=== PATIENT | female | born 1930 ===

== ENCOUNTER 2017-02-28 21:06 | Inpatient (IN) | payer MEDICARE, OTHER ==
[2017-02-28 21:24] VITALS: BMI 18.7
--- NOTE | 2017-02-28 21:25 | ED PDOC ---
Arrival/HPI - General Time Seen by Provider: 02/28/17 21:17 Historian: Family, EMS - History of Present Illness Narrative History of Present Illness (Text): 02/28/17 21:19 Yudi Perez is a 86 year old female, with a history of Alzheimer's, osteoporosis , hypothyroidism and diabetes, presents to the emergency department via EMS for altered mental status. Per daughter and EMS, patient suddenly passed out while sitting at the table to eat dinner about 30 minutes prior to arrival. Patient fell over onto the plate and remained unresponsive to verbal stimuli. According to daughter, she was at her baseline prior to this episode. However, she reports that patient was unable to fall asleep since yesterday. Patient responsive to painful stimuli in the emergency department. ROS limited due to AMS. Time/Duration: 1/2 hour Symptom Onset: Sudden Symptom Course: Unchanged Severity Level: Moderate Activities at Onset: Eating Context: Home Past Medical History - Provider Review Nursing Documentation Reviewed: Yes Family/Social History - Physician Review Nursing Documentation Reviewed: Yes Family/Social History: No Known Family HX Allergies/Home Meds Allergies/Adverse Reactions: Allergies No Known Allergies Allergy (Verified 02/28/17 21:19) Home Medications: Home Meds Medication Instructions Recorded Confirmed Alendronate [Fosamax] 10 mg PO DAILY 02/28/17 02/28/17 Carvedilol [Coreg] 12.5 mg PO BID 02/28/17 02/28/17 Donepezil [Aricept] 5 mg PO HS 02/28/17 02/28/17 Levothyroxine [Synthroid] 88 mcg PO DAILY 02/28/17 02/28/17 Linagliptin [Tradjenta] 5 mg PO DAILY 02/28/17 02/28/17 Omeprazole [Omeprazole] 40 mg PO HS 02/28/17 02/28/17 Tramadol HCl [Ultram] 50 mg PO PRN PRN 02/28/17 02/28/17 Valsartan [Diovan] 40 mg PO DAILY 02/28/17 02/28/17 Review of Systems - Review of Systems Systems not reviewed;Unavailable: Altered Mental Status Physical Exam Vital Signs Reviewed: Yes Vital Signs Temp Pulse Resp BP Pulse Ox 03/01/17 02:45 66 18 109/55 L 96 03/01/17 01:00 69 19 101/60 95 03/01/17 00:00 67 21 107/57 L 95 02/28/17 23:25 74 26 H 111/69 95 02/28/17 22:25 73 18 106/52 L 95 02/28/17 22:00 98.5 F 67 18 98 02/28/17 21:18 71 15 118/61 94 L Temperature: Afebrile Blood Pressure: Normal Pulse: Regular Respiratory Rate: Normal Appearance: Positive for: Non-Toxic Mental Status: Positive for: other (unresponsive ) - Systems Exam Head: Present: Atraumatic, Normocephalic Pupils: Present: PERRL Conjunctiva: Present: Normal Respiratory/Chest: Present: Clear to Auscultation, Good Air Exchange. No: Respiratory Distress, Accessory Muscle Use Cardiovascular: Present: Regular Rate and Rhythm, Normal S1, S2. No: Murmurs Skin: Present: Warm, Dry, Normal Color. No: Rashes Medical Decision Making ED Course and Treatment: 02/28/17 21:28 Impression: A 86 year old female who presents to the emergency department for evaluation of altered mental status. Patient experienced a syncopal episode while eating dinner and remained unresponsive to verbal communication. Plan: -- Labs -- EKG -- CT head -- TSH -- Chest X-ray -- Reassess and disposition Progress Notes: 02/28/17 21:42 CT Head results reviewed by me: FINDINGS: Brain: Simh-at-eyrptejr atrophy. No intracranial hemorrhage. No mass. Several scattered foci of decreased attenuation within periventricular/subcortical white matter. No definite edema. Ventricles: No hydrocephalus. Bones/joints: No acute fracture. Soft tissues: Unremarkable. Vasculature: Atherosclerotic disease of intracranial arteries. Sinuses: No acute sinusitis. Mastoid air cells: No mastoid effusion. Orbits: Unremarkable as visualized. IMPRESSION: 1. Nonspecific white matter changes. Acute infarction may be CT occult within first 24 hours. If a focal deficit persists, consider followup CT or MRI for further evaluation. 2. Incidental/non-acute findings are described above. 02/28/17 21:51 Patient is currently alert and sitting up in bed without any distress. 02/28/17 22:16 EKG interpreted by me: NSR @ 73 bpm. Normal [place]. Normal interval. No acute ischemia. 02/28/17 22:34 Chest X-ray interpreted by me: Bilateral fibrotic changes. no acute processes. 02/28/17 23:40 Case discussed with medical service consignee, Dr. Payne, who agrees with the plan to admit patient to med/surge for AMS- requests a ddimer. 0== - Lab Interpretations Microbiology Results: Microbiology Results 02/28/17 23:35 Urine Urine Culture - Final 10-50,000 CFU/ML. MULTIPLE SPECIES. PROBABLE CONTAMINATION. 03/01/17 06:30 Urine,Clean Catch Urine Culture - Final 10-50,000 CFU/ML. MULTIPLE SPECIES. PROBABLE CONTAMINATION. Lab Results: 03/01/17 08:20 03/01/17 08:20 Lab Results 03/01/17 16:57: POC Glucose (mg/dL) 39 L 03/01/17 10:55: POC Glucose (mg/dL) 368 H 03/01/17 08:20: WBC 9.3, RBC 3.82, Hgb 11.2 L, Hct 33.3 L, MCV 87.2, MCH 29.3, MCHC 33.6, RDW 12.7, Plt Count 271, MPV 10.8, Gran % 66.2, Lymph % (Auto) 24.1, [place] % (Auto) 8.0 H, Eos % (Auto) 1.5, Baso % (Auto) 0.2, Gran # 6.16, Lymph # 2.3, [place] # 0.8 H, Eos # 0.1, Baso # 0.02, Sodium 135, Potassium 4.2, Chloride 99, Carbon Dioxide 29, Anion Gap 11, BUN 19, Creatinine 0.5, Est GFR ( Amer) > 60, Est GFR (Non-Af Amer) > 60, Random Glucose 200 H, Calcium 9.0, Total Bilirubin 1.2, AST 30, ALT 60 H, Alkaline Phosphatase 126, Lactate Dehydrogenase 341, Total Creatine Kinase 22 L, Troponin I 0.04 D, Total Protein 6.6, Albumin 3.1, Globulin 3.5, Albumin/Globulin Ratio 0.9 L, TSH 3rd Generation 3.76 03/01/17 07:36: POC Glucose (mg/dL) 227 H 02/28/17 23:35: Urine Color Yellow, Urine Appearance Cloudy, Urine pH 6.0, Ur Specific [place] >= 1.030, Urine Protein 30 H, Urine Glucose (UA) >=1000, Urine Ketones Trace H, Urine Blood Moderate H, Urine Nitrate Negative, Urine Bilirubin Negative, Urine Urobilinogen 1.0 H, Ur Leukocyte Esterase Negative, Urine RBC 2 - 5, Urine WBC 5 - 10, Ur Epithelial Cells 3 - 4, Urine Bacteria Mod 02/28/17 23:32: Blood Type Confirm A POSITIVE 02/28/17 21:50: WBC 11.4 H, RBC 4.42, Hgb 12.9, Hct 38.6, MCV 87.3, MCH 29.2, MCHC 33.4, RDW 12.5, Plt Count 295, MPV 10.9, Gran % 76.4 H, Lymph % (Auto) 16.9 L, [place] % (Auto) 5.9, Eos % (Auto) 0.7 L, Baso % (Auto) 0.1, Gran # 8.71 H , Lymph # 1.9, [place] # 0.7 H, Eos # 0.1, Baso # 0.01, PT 10.8, INR 1.00, APTT 26.4, D-Dimer, Quantitative 1.25 H, Sodium 135, Potassium 4.6, Chloride 97 L, Carbon Dioxide 30, Anion Gap 13, BUN 23 H, Creatinine 0.6, Est GFR ( Amer ) > 60, Est GFR (Non-Af Amer) > 60, Random Glucose 243 H, Hemoglobin A1c 9.3 H, Calcium 9.9, Total Bilirubin 1.5 H, AST 36, ALT 64 H, Alkaline Phosphatase 149 H , Troponin I 0.03, Total Protein 8.3, Albumin 3.9, Globulin 4.4, Albumin/ Globulin Ratio 0.9 L, Triglycerides 131, Cholesterol 166, LDL Cholesterol Direct 90, HDL Cholesterol 50, TSH 3rd Generation 1.77, Blood Type A POSITIVE, Antibody Screen Negative, BBK History Checked No verified bt 02/28/17 21:17: POC Glucose (mg/dL) 318 H I have reviewed the lab results: Yes - RAD Interpretation Radiology Orders: 02/28/17 21:22 HEAD W/O (CODE STROKE) [CT] Stat 02/28/17 21:23 CHEST PORTABLE [RAD] Stat 03/01/17 01:25 ANGIO CHEST PE PROTOCOL [CT] Stat 03/01/17 07:57 CAROTID & VERTEBRAL DUPLEX [US] Routine Generation Engineer: Radiologist - EKG Interpretation Interpreted by ED Physician: Yes Type: 12 lead EKG - Medication Orders Current Medication Orders: Donepezil HCl (Aricept) 5 mg PO HS [facility] Last Admin: 03/02/17 21:04 Dose: 5 MG Enoxaparin Sodium (Lovenox) 40 mg SC DAILY [facility] PRN Reason: Protocol Last Admin: 03/03/17 10:28 Dose: 40 MG Protocol for PTT Monitoring Document 03/03/17 10:28 MV (Rec: 03/03/17 10:29 MV [id number]) Protocol Protocol for PTT Monitoring Following clinical pathway protocol (regime/therapy) Subcutaneous Administrations Document 03/03/17 10:28 MV (Rec: 03/03/17 10:29 MV [id number]) Injection Site MAR Injection Site Right Abdomen Charges for Administration # of Subcutaneous Administrations 1 Glimepiride (Amaryl) 4 mg PO ACBD [facility] Last Admin: 03/03/17 17:55 Dose: Home Med (Home Med) 1 unit PO DAILY [facility] Last Admin: 03/03/17 10:28 Dose: Home Med (Home Med) 1 unit PO DAILY [facility] Last Admin: 03/03/17 10:28 Dose: Insulin Human Regular (Humulin R Low) 0 units SC ACHS [facility] PRN Reason: Protocol Last Admin: 03/03/17 17:55 Dose: MAR Blood Glucose Document 03/03/17 17:55 MV (Rec: 03/03/17 17:55 MV [id number]) Blood Glucose Finger Stick Blood Glucose (70-120) 108 Levothyroxine Sodium (Synthroid) 88 mcg PO ACB [facility] Last Admin: 03/03/17 10:29 Dose: 88 MCG Pantoprazole Sodium (Protonix Ec Tab) 40 mg PO HS [facility] Last Admin: 03/02/17 21:05 Dose: 40 MG Sitagliptin Phosphate (Januvia) 50 mg PO DAILY [facility] Last Admin: 03/03/17 10:28 Dose: 50 MG Tramadol HCl (Ultram) 50 mg PO Q12H [facility] Last Admin: 03/03/17 10:29 Dose: 50 MG MAR Pain Assessment Document 03/03/17 10:29 MV (Rec: 03/03/17 10:29 MV [id number]) Pain Reassessment Is this a pain reassessment? No Discontinued Medications Alendronate Sodium (Fosamax) 10 mg PO DAILY [facility] Dextrose (Dextrose 50% Inj) Confirm Administered Dose 50 ml .ROUTE .STK-MED ONE Stop: 03/01/17 17:00 Last Admin: 03/01/17 17:10 Dose: 50 ML Glipizide (Glucotrol) 5 mg PO DAILY [facility] Last Admin: 03/01/17 14:55 Dose: 5 MG Ceftriaxone Sodium (Rocephin 1 Gram Ivpb) 100 mls @ 200 mls/hr IVPB STAT STA PRN Reason: Protocol Stop: 03/01/17 00:40 Last Admin: 03/01/17 01:25 Dose: 200 MLS/HR eMAR Start Stop Document 03/01/17 01:25 SB (Rec: 03/01/17 01:26 SB [id number] Intravenous Solution Start Date 03/01/17 Start Time 01:26 End Date 03/01/17 Sodium Chloride (Sodium Chloride 0.9%) 1,000 mls @ 60 mls/hr IV .[id number] [facility] Stop: 03/02/17 09:00 Last Admin: 03/02/17 04:44 Dose: Insulin Detemir (Levemir) 12 unit SC [facility] Last Admin: 03/02/17 21:05 Dose: 12 UNIT Subcutaneous Administrations Document 03/02/17 21:05 RR (Rec: 03/02/17 21:05 RR [id number]) Charges for Administration # of Subcutaneous Administrations 1 Insulin Human Lispro (Humalog) 10 units SC ONCE ONE Stop: 03/02/17 11:50 Last Admin: 03/02/17 12:09 Dose: 10 UNITS Subcutaneous Administrations Document 03/02/17 12:09 CLR (Rec: 03/02/17 12:09 CLR [id number]) Injection Site MAR Injection Site Right Arm Charges for Administration # of Subcutaneous Administrations 9 Insulin Human Regular (Humulin R Low) 0 units SC ACHS [facility] PRN Reason: Protocol Last Admin: 03/01/17 17:11 Dose: Not Given Non-Admin Reason: Blood Sugar Parameter Iodixanol (Visipaque 320 Mg/Ml 100 Ml) Confirm Administered Dose 100 ml IV .STK- MED ONE Stop: 03/01/17 01:32 NIHSS Scale ([place]) Time Performed: 21:18 rTPA Inclusion/Exclusion - Refusal of Treatment Patient Refused Treatment: No - Inclusion Criteria for Altepase Patient is 18 years or Older: Yes The Clinical Diagnosis of Ischemic Stroke That is Causing a Potentially Disabling Neurological Deficit: No Time of Onset is Well Established to be Less Than 270 Minute Before Treatment Would Begin: Yes Risk/Benefit Discussed With Patient/Family Member Present: Yes NIHSS Stroke Scale 3 - Date/Time Evaluation Performed Time Performed: 21:18 - How Severe is the Stroke Level of Consciousness: 3=Unresponsive LOC to Questions: 2=Neither correct LOC to commands: 2=Neither correct Best Gaze: 0=Normal Visual: 0=No visual loss Facial: 0=Normal Motor Arm - Left: 3=No effort against gravity (falls immediately) Motor Arm - Right: 3=No effort against gravity (falls immediately) Motor Leg - Left: 3=No effort against gravity (falls immediately) Motor Leg - Right: 3=No effort against gravity (falls immediately) Limb Ataxia: 0=Absent Sensory: 0=Normal Best Language: 3=Mute Dysarthia: 0=Normal articulation Extinction & Inattention (Neglect): 0=Normal, no object Score: 22 - Scribe Statement The provider has reviewed the documentation as recorded by the Thomas Napoles Provider Attestation: Provider Scribe Attestation: All medical record entries made by the Elieribaura were at my direction and personally dictated by me. I have reviewed the chart and agree that the record accurately reflects my personal performance of the history, physical exam, medical decision making, and the department course for this patient. I have also personally directed, reviewed, and agree with the discharge instructions and disposition. Disposition/Present on Arrival - Present on Arrival Any Indicators Present on Arrival: No - Disposition Have Diagnosis and Disposition been Completed?: Yes Diagnosis: Altered mental status Disposition: HOSPITALIZED Disposition Time: 23:28 Condition: STABLE
--- NOTE | 2017-02-28 21:39 | CT ---
EXAM: CT Head Without Intravenous Contrast CLINICAL HISTORY: 86 years old, female; Signs and symptoms; Alteration of consciousness; Patient HX: AMS, code stroke TECHNIQUE: Axial computed tomography images of the head/brain without intravenous contrast. This CT exam was performed using one or more of the following dose reduction techniques: automated exposure control, adjustment of the mA and/or kV according to patient size, and/or use of iterative reconstruction technique. COMPARISON: No relevant prior studies available. FINDINGS: Brain: Fuyi-sp-djezzqje atrophy. No intracranial hemorrhage. No mass. Several scattered foci of decreased attenuation within periventricular/subcortical white matter. No definite edema. Ventricles: No hydrocephalus. Bones/joints: No acute fracture. Soft tissues: Unremarkable. Vasculature: Atherosclerotic disease of intracranial arteries. Sinuses: No acute sinusitis. Mastoid air cells: No mastoid effusion. Orbits: Unremarkable as visualized. IMPRESSION: 1. Nonspecific white matter changes. Acute infarction may be CT occult within first 24 hours. If a focal deficit persists, consider followup CT or MRI for further evaluation. 2. Incidental/non-acute findings are described above.
[2017-02-28 22:12] LABS: ADD MANUAL DIFF? NO
[2017-02-28 22:17] LABS: BASO # 0.01 K/mm3 (0.0-2.0); BASO % 0.1 % (0.0-3.0); EOS # 0.1 (0.0-0.7); EOS % 0.7 % (1.5-5.0); GRAN # 8.71 (1.4-6.5); GRAN % 76.4 % (50.0-68.0); HEMATOCRIT 38.6 % (36.0-48.0); LYMPH # 1.9 (1.2-3.4); LYMPH % 16.9 % (22.0-35.0); MEAN CELL VOLUME 87.3 fL (80.0-105.0); MEAN CORPUSCULAR HEMOGLOBIN 29.2 pg (25.0-35.0); MEAN CORPUSCULAR HGB CONC 33.4 g/dl (31.0-37.0); MEAN PLATELET VOLUME 10.9 fl (7.0-11.0); MONO # 0.7 (0.1-0.6); MONO % 5.9 % (1.0-6.0); PLATELET COUNT 295 10^3/uL (120.0-450.0); RED CELL DISTRIBUTION WIDTH 12.5 % (11.5-14.5); WHITE BLOOD COUNT 11.4 10^3/ul (4.5-11.0)
[2017-02-28 22:28] LABS: ALB/GLOB RATIO 0.9 (1.1-1.8); ALKALINE PHOSPHATASE 149 U/L (38-133); ALT/SGPT 64 U/L (7-56); AST/SGOT 36 U/L (15-39); BILIRUBIN,TOTAL 1.5 mg/dL (0.2-1.3); BLOOD UREA NITROGEN 23 mg/dL (7-21); CALCIUM 9.9 mg/dL (8.4-10.5); CARBON DIOXIDE 30 mmol/L (21-33); CHLORIDE 97 mmol/L (98-107); CHOLESTEROL 166 mg/dL (130-200); GFR AFRICAN-AMERICAN > 60; GLUCOSE,RANDOM 243 mg/dL (70-110); POTASSIUM 4.6 mmol/L (3.6-5.0); SODIUM 135 mmol/L (132-148); TOTAL PROTEIN 8.3 g/dL (5.8-8.3)
[2017-02-28 22:29] LABS: PARTIAL THROMBOPLASTIN TIME 26.4 Seconds (23.7-30.8)
[2017-02-28 22:38] LABS: TROPONIN I 0.03 ng/mL
[2017-02-28 23:45] LABS: URINE BILIRUBIN NEGATIVE (NEGATIVE); URINE BLOOD MODERATE (NEGATIVE); URINE GLUCOSE (UA) >=1000 mg/dL (NEGATIVE); URINE KETONE TRACE mg/dL (NEGATIVE); URINE LEUKOCYTE ESTERASE NEGATIVE Leu/uL (NEGATIVE); URINE PROTEIN 30 mg/dL (<30 mg/dL)
[2017-02-28 23:58] LABS: URINE APPEARANCE CLOUDY (CLEAR); URINE COLOR YELLOW (YELLOW)
[2017-03-01 00:07] LABS: URINE BACTERIA MOD (NEG)
[2017-03-01] MEDS ORDERED: cefTRIAXone 1 gm 100 ML IVPB STA (00:11)
[2017-03-01] MEDS ORDERED: Iodixanol 320 MG/ML 100 ML BOTTLE IV ONE (01:31)
--- NOTE | 2017-03-01 02:31 | CT ---
EXAM: CT Angiography Chest With Intravenous Contrast CLINICAL HISTORY: 86 years old, female; Signs and symptoms; Other: D dimer level high; Additional info: Syncope +ddimer TECHNIQUE: Axial computed tomographic angiography images of the chest with intravenous contrast using pulmonary embolism protocol. This CT exam was performed using one or more of the following dose reduction techniques: automated exposure control, adjustment of the mA and/or kV according to patient size, and/or use of iterative reconstruction technique. MIP reconstructed images were created and reviewed. Coronal and sagittal reformatted images were created and reviewed. CONTRAST: 100 mL of VISI 320 administered intravenously. COMPARISON: No relevant prior studies available. FINDINGS: Limitations: Motion artifact - mild. Pulmonary arteries: No definite pulmonary embolism. No definite pulmonary embolism. Aorta: Mmix-rp-zfzkkvaf atherosclerotic disease. No aortic aneurysm. Lungs: Peripheral honeycombing/reticulation. Patchy peripheral airspace opacities. Pleural space: No significant effusion. No pneumothorax. Heart: Borderline cardiomegaly. No significant pericardial effusion. Thyroid: Heterogeneity of thyroid gland. Bones/joints: No acute fracture. No dislocation. Soft tissues: Unremarkable. Lymph nodes: No pathologically enlarged lymph nodes. IMPRESSION: 1. No definite CT evidence of pulmonary embolism. 2. Pulmonary fibrosis. Superimposed pneumonia not excluded. 3. Heterogeneous thyroid. Followup as clinically warranted. 4. Incidental/non-acute findings are described above.
--- NOTE | 2017-03-01 08:07 | RAD ---
HISTORY: ams COMPARISON: The study was read in conjunction with CTA chest at 1:54 a.m.. FINDINGS: LUNGS: Re- demonstrated are coarsened interstitial markings consistent with honeycombing and not chronic fibrosis. PLEURA: No significant pleural effusion identified, no pneumothorax apparent. CARDIOVASCULAR: Cardiomegaly. OSSEOUS STRUCTURES: No significant abnormalities. VISUALIZED UPPER ABDOMEN: Normal. OTHER FINDINGS: None. IMPRESSION: Re- demonstrated are coarsened interstitial markings consistent with honeycombing and not chronic fibrosis.
[2017-03-01] MEDS: Levothyroxine 88 MCG TAB PO SCH (08:15)
[2017-03-01 08:36] LABS: ADD MANUAL DIFF? NO
[2017-03-01 08:51] LABS: ALB/GLOB RATIO 0.9 (1.1-1.8); ALKALINE PHOSPHATASE 126 U/L (38-133); ALT/SGPT 60 U/L (7-56); AST/SGOT 30 U/L (15-39); BASO # 0.02 K/mm3 (0.0-2.0); BASO % 0.2 % (0.0-3.0); BILIRUBIN,TOTAL 1.2 mg/dL (0.2-1.3); BLOOD UREA NITROGEN 19 mg/dL (7-21); CARBON DIOXIDE 29 mmol/L (21-33); CHLORIDE 99 mmol/L (98-107); EOS # 0.1 (0.0-0.7); EOS % 1.5 % (1.5-5.0); GFR AFRICAN-AMERICAN > 60; GLUCOSE,RANDOM 200 mg/dL (70-110); GRAN # 6.16 (1.4-6.5); GRAN % 66.2 % (50.0-68.0); HEMATOCRIT 33.3 % (36.0-48.0); LYMPH # 2.3 (1.2-3.4); LYMPH % 24.1 % (22.0-35.0); MEAN CELL VOLUME 87.2 fL (80.0-105.0); MEAN CORPUSCULAR HEMOGLOBIN 29.3 pg (25.0-35.0); MEAN CORPUSCULAR HGB CONC 33.6 g/dl (31.0-37.0); MEAN PLATELET VOLUME 10.8 fl (7.0-11.0); MONO # 0.8 (0.1-0.6); PLATELET COUNT 271 10^3/uL (120.0-450.0); POTASSIUM 4.2 mmol/L (3.6-5.0); RED CELL DISTRIBUTION WIDTH 12.7 % (11.5-14.5); SODIUM 135 mmol/L (132-148); TOTAL PROTEIN 6.6 g/dL (5.8-8.3); WHITE BLOOD COUNT 9.3 10^3/ul (4.5-11.0)
[2017-03-01 09:01] LABS: TROPONIN I 0.04 ng/mL
[2017-03-01] MEDS: TRADJENTA 5 MG PO SCH (09:08)
[2017-03-01] MEDS: Enoxaparin 40 mg Syringe SC SCH (09:41)
[2017-03-01] MEDS ORDERED: Home Med 1 UNIT PO SCH ×2 (10:00)
[2017-03-01] MEDS: FOSAMAX 10 MG PO SCH (10:12)
--- NOTE | 2017-03-01 10:14 | CARD ---
APPROVED REPORT EKG Measurement Heart [id number] <Conclusion> Normal sinus rhythm with sinus arrhythmia Low voltage QRS Borderline ECG
[2017-03-01] MEDS: Insulin Reg-LOW-Coverage SC SCH ×2 (12:24→17:11)
[2017-03-01] MEDS ORDERED: Dextrose 50% SYRINGE Inj (50 ml) ONE (16:59)
--- NOTE | 2017-03-01 17:51 | CON ---
DATE: 03/01/2017 CHIEF COMPLAINT: Altered mental status. HISTORY OF PRESENT ILLNESS: An 86-year-old woman with history of Alzheimer's type dementia, osteopor osis, hypothyroidism, type 2 diabetes mellitus with uncontrolled blood sugars, who has been having a poor routine of sleep, has not been sleeping at night and was as per daughter has suddenly passed out while sitting at a table when she was brought to eat for about 30 minutes. She sleeps throughout e day and is awake throughout the night, has a poor routine cycle. Her CT head showed no acute intra cranial abnormality. Her A1c is 9.3 indicating poorly controlled diabetes. She follows simple comma nds, but has poor recall and poor attentive span likely from underlying dementia. Daughter is at bed side while examining. PAST MEDICAL HISTORY: Alzheimer's type dementia, osteoporosis, hypothyroidism, type 2 diabetes cesarioi bhavya. FAMILY HISTORY: Noncontributory. SOCIAL HISTORY: No illicit drug use, smoking, or ETOH abuse. ALLERGIES: No known drug allergies. MEDICATIONS: Reviewed via nurse's reconciliation sheet. REVIEW OF SYSTEMS: Difficult to obtain due to the patient's underlying demented status. PHYSICAL EXAMINATION: VITAL SIGNS: Temperature 98, pulse rate of 66, blood pressure 109/55, respiratory rate of 18, oxygen saturation 96% on room air. GENERAL: The patient is sitting up in bed in no acute distress. HEENT: Atraumatic, normocephalic. PERRLA. Extraocular muscles intact. NECK: Supple, no JVD, no adenopathy noted. LUNGS: Clear to auscultation. No adventitious sounds. HEART: S1, S2, normal rate and rhythm. No murmurs, rubs, or gallops. ABDOMEN: Soft, nontender, nondistended. Bowel sounds are present. EXTREMITIES: No clubbing, no cyanosis. Peripheral pulses 2+ felt bilaterally. NEUROLOGIC: The patient is alert, oriented to self, not to month or year. Recall after 5 minutes is 0/3. Poor attention span, slowed thought process, cannot spell the word world backwards. Speech is fluent, without any errors. Cranial nerves II through XII are intact. MOTOR: Slight increased tone throughout. Moves all extremities equally. No pronator drift is seen. SENSORY: Decreased light touch and pinprick up to the calves bilaterally. Decreased vibration of th e toes. DTRs are 1+ throughout and absent at the ankles. COORDINATION: Zysakf-wx-myuv intact. GAIT: Deferred for now. LABORATORIES: Sodium 135, potassium 4.2, chloride 99, carbon dioxide 29, BUN of 19, creatinine 0.5, random glucose of 200, A1c is 9.3. ASSESSMENT AND PLAN: This is an 86-year-old woman with history of Alzheimer's type dementia on Arice pt 5 mg, a history of osteoporosis, hypothyroidism, type 2 diabetes mellitus, uncontrolled, with hype rglycemia. I was consulted for altered mental status, suddenly had passed out while sitting at the d inner table for about 30 minutes. No seizure-like events. No history of seizures. Apparently, she is at baseline according to the daughter at bedside. She will follow simple commands and moves to no xious stimulus in response. The daughter says the mother sleeps throughout the day and is awake thro ughout the night and is having a poor sleep cycle. At this time, I feel like her altered mental stat us is secondary to sleep deprivation, poor sleep hygiene as well as transient cerebral hypoperfusion given her blood pressures systolically and diastolically are on the lower side. Unlikely a seizure d isorder at all. CT head reviewed and showed no acute intracranial abnormalities. Her neuro exam is consistent with a severe cognitive impairment, indicating Alzheimer's type dementia. At this time, r ecommend: 1. She should be placed on Namenda XR 14 mg p.o. daily when she is discharged home or to subacute re habilitation in addition to Aricept 5 mg for dementia. 2. Keep her blood sugars between 140-180 and A1c is 9.6 indicating poorly controlled diabetes mellit us and will need better diabetic medication adjustment. 3. Advise better sleep hygiene in terms of possible sleeping aid at night to give her better sleep s uch as melatonin 10 mg p.o. at bedtime to regularize her sleep cycle and to avoid nighttime interrupt ions and better frequent orientation throughout the day. 4. She needs physical therapy assessment and likely will require subacute rehabilitation. At this t donna, she is clinically stable from my standpoint. Please reconsult if necessary. Andre Ingram MD cc: [phone] TT: 03/01/2017 17:50:48 Confirmation # [id number] Dictation # [id number] cn
--- NOTE | 2017-03-01 18:14 | US ---
PROCEDURE: Bilateral carotid artery duplex ultrasound HISTORY: Carotid stenosis PHYSICIAN(S): Chris Santos MD. TECHNIQUE: Duplex sonography and color-flow Doppler were used to evaluate the carotid bifurcations and limited segments of the vertebral arteries bilaterally. FINDINGS: There is moderate to extensive irregular echogenic plaque noted at the carotid bifurcations bilaterally. The peak systolic velocity in the proximal right internal carotid artery is 79 cm/sec. This corresponds to a 20 to 39% proximal right ICA stenosis. Normal systolic velocities are noted in the proximal right external carotid artery. There is antegrade flow in the right vertebral artery. The peak systolic velocity in the proximal left internal carotid artery is 140 cm/sec. This corresponds to a 40-59 percent proximal left ICA stenosis. Normal systolic velocities are noted in the proximal left external carotid artery. There is antegrade flow in the dominant left vertebral artery. IMPRESSION: 1. 40-59 percent proximal left ICA stenosis. 2. 20-39 percent proximal right ICA stenosis. 3. Antegrade flow in both vertebral arteries
[2017-03-01] MEDS: Pantoprazole 40 mg EC Tab PO SCH (21:47)
--- NOTE | 2017-03-01 23:07 | CP.PCM.HP ---
History of Present Illness - History of Present Illness History of Present Illness: An 86 yr old female with past medical hx of DM, dementia, hypothyroidism came with c\o LOC for sometime while she was eating .no hx of similar attacks. lately she is not sleeping well as per daughter ,she is dependant on ADL\IDL , Dementia,mostly bed bound . in ER labs noted - Present on Admission - Present on Admission Any Indicators Present on Admission: No Review of Systems - Review of Systems Systems not reviewed;Unavailable: Dementia - Constitutional Constitutional: Fatigue, Frequent Falls. absent: Fever - EENT Nose/Mouth/Throat: absent: Nasal Congestion - Cardiovascular Cardiovascular: Leg Edema. absent: Chest Pain, Dyspnea, Edema, Rapid Heart Rate - Respiratory Respiratory: absent: Chest Congestion, Excessive Mucous Production - Gastrointestinal Gastrointestinal: Nausea. absent: Abdominal Pain, Vomiting - Genitourinary Genitourinary: absent: Difficulty Urinating, Urinary Frequency - Musculoskeletal Musculoskeletal: Arthralgias, Limited Range of Motion Additional comments: left shoulder - Integumentary Integumentary: absent: Sores - Neurological Neurological: absent: Behavioral Changes, Dizziness, Focal Weakness, Tremor - Psychiatric Psychiatric: Memory Loss. absent: Auditory Hallucinations - Hematologic/Lymphatic Hematologic: absent: Lymphadenopathy Past Patient History - Past Social History Smoking Status: Never Smoked - CARDIAC Hx Hypertension: Yes - PULMONARY Hx Respiratory Disorders: No - NEUROLOGICAL Hx Dementia: Yes - HEENT Hx HEENT Problems: No - RENAL Hx Chronic Kidney Disease: No - ENDOCRINE/METABOLIC Hx Diabetes Mellitus Type 2: Yes Hx Hypothyroidism: Yes - HEMATOLOGICAL/ONCOLOGICAL Hx Blood Disorders: No - INTEGUMENTARY Hx Dermatological Problems: No - MUSCULOSKELETAL/RHEUMATOLOGICAL Hx Falls: No - GASTROINTESTINAL Hx Constipation: Yes Hx Hemorrhoids: Yes - GENITOURINARY/GYNECOLOGICAL Hx Genitourinary Disorders: No - PSYCHIATRIC Hx Psychophysiologic Disorder: Yes Hx Anxiety: Yes Hx Depression: Yes Hx Substance Use: No - SURGICAL HISTORY Hx Hysterectomy: Yes Meds Allergies/Adverse Reactions: Allergies Allergy/AdvReac Type Severity Reaction Status Date / Time No Known Allergies Allergy Verified 02/28/17 21:19 Physical Exam - Constitutional Appears: No Acute Distress - Head Exam Head Exam: NORMAL INSPECTION - Eye Exam Eye Exam: EOMI, Normal appearance, PERRL. absent: Scleral icterus - ENT Exam ENT Exam: Mucous Membranes Dry - Neck Exam Neck exam: Positive for: Normal Inspection. Negative for: Tenderness - Respiratory Exam Respiratory Exam: Clear to Auscultation Bilateral, NORMAL BREATHING PATTERN. absent: Wheezes - Cardiovascular Exam Cardiovascular Exam: REGULAR RHYTHM, +S1, +S2 - GI/Abdominal Exam GI & Abdominal Exam: Normal Bowel Sounds, Soft. absent: Organomegaly, Tenderness - Extremities Exam Extremities exam: Positive for: normal inspection, pedal pulses present. Negative for: pedal edema Additional comments: left shoulder- decreased ROM, Tender - Neurological Exam Neurological exam: Alert, Reflexes Normal Additional comments: oriented to name only - Psychiatric Exam Psychiatric exam: Normal Affect, Normal Mood - Skin Skin Exam: Intact, Warm Results - Vital Signs Recent Vital Signs: Last Vital Signs Temp 97.9 F 03/01/17 16:00 Pulse 69 03/01/17 16:00 Resp 20 03/01/17 16:00 BP 107/55 L 03/01/17 16:00 Pulse Ox 98 03/01/17 16:00 - Labs Result Diagrams: 03/04/17 07:00 03/04/17 07:00 - EKG Data EKG Interpreted by: Other Rate: Normal - Imaging and Cardiology Chest x-ray Status: Report reviewed by me CT scan - head Status: Report reviewed by me Assessment & Plan (1) Syncope Status: Acute (2) Type 2 diabetes mellitus with hyperglycemia Status: Chronic (3) Arthralgia Status: Chronic (4) Dementia Status: Chronic (5) Other specified hypothyroidism Status: Chronic (6) Shoulder tendinitis Status: Chronic - Assessment and Plan (Free Text) Plan: 1.orthostatics ivf unclear etiology for syncope? watch blood sugars cardiac work up 2. hba1c 3. resume home meds 4. riss\insulin coverage 4. URINE c\s CT chest to r\o PE , xray of shoulder left-r\o fracture discussed with daughter in detail. Decision To Admit - Pt Status Changed To: Hospital Disposition Of: Inpatient Admission - Admit Certification Admit to Inpatient:: After my assessment, the patient will require hospitalization for at least two midnights. This is because of the severity of symptoms shown, intensity of services needed, and/or the medical risk in this patient being treated as an outpatient. - . Bed Request Type: Telemetry Admitting Physician: Jose Payne
[2017-03-02] MEDS: Sodium Chloride 0.9% 1,000 ML IV SCH ×2 (01:45→04:44)
[2017-03-02 06:46] LABS: ADD MANUAL DIFF? NO
[2017-03-02 06:53] LABS: BASO # 0.01 K/mm3 (0.0-2.0); BASO % 0.1 % (0.0-3.0); EOS # 0.2 (0.0-0.7); EOS % 2.2 % (1.5-5.0); GRAN # 4.99 (1.4-6.5); GRAN % 61.1 % (50.0-68.0); HEMATOCRIT 33.5 % (36.0-48.0); LYMPH # 2.2 (1.2-3.4); LYMPH % 27.2 % (22.0-35.0); MEAN CELL VOLUME 88.9 fL (80.0-105.0); MEAN CORPUSCULAR HEMOGLOBIN 28.9 pg (25.0-35.0); MEAN CORPUSCULAR HGB CONC 32.5 g/dl (31.0-37.0); MEAN PLATELET VOLUME 10.5 fl (7.0-11.0); MONO # 0.8 (0.1-0.6); MONO % 9.4 % (1.0-6.0); PLATELET COUNT 256 10^3/uL (120.0-450.0); RED CELL DISTRIBUTION WIDTH 12.7 % (11.5-14.5); WHITE BLOOD COUNT 8.2 10^3/ul (4.5-11.0)
[2017-03-02 07:24] LABS: ALB/GLOB RATIO 0.8 (1.1-1.8); ALKALINE PHOSPHATASE 108 U/L (38-133); ALT/SGPT 56 U/L (7-56); AST/SGOT 32 U/L (15-39); BILIRUBIN,TOTAL 1.1 mg/dL (0.2-1.3); BLOOD UREA NITROGEN 16 mg/dL (7-21); CALCIUM 8.6 mg/dL (8.4-10.5); CARBON DIOXIDE 28 mmol/L (21-33); CHLORIDE 103 mmol/L (98-107); GFR AFRICAN-AMERICAN > 60; GLUCOSE,RANDOM 200 mg/dL (70-110); POTASSIUM 3.7 mmol/L (3.6-5.0); SODIUM 138 mmol/L (132-148); TOTAL PROTEIN 6.2 g/dL (5.8-8.3)
[2017-03-02] MEDS: Levothyroxine 88 MCG TAB PO SCH (08:45)
[2017-03-02] MEDS: FOSAMAX 10 MG PO SCH (10:45)
[2017-03-02] MEDS: TRADJENTA 5 MG PO SCH (10:45)
[2017-03-02] MEDS: Enoxaparin 40 mg Syringe SC SCH (10:49)
[2017-03-02] MEDS ORDERED: Insulin Lispro 1 UNITS/0.01 ML SC ONE (11:49)
--- NOTE | 2017-03-02 15:05 | RAD ---
PROCEDURE: Radiographs of the Left Shoulder HISTORY: pain,fall r o trauma COMPARISON: No prior. FINDINGS: BONES: Normal. No fracture. JOINTS: Normal. Glenohumeral and acromioclavicular joints preserved. No osteoarthritis. SOFT TISSUES: Normal. OTHER FINDINGS: None. IMPRESSION: Normal radiographs of the left shoulder.
[2017-03-02] MEDS: Insulin Reg-LOW-Coverage SC SCH ×3 (17:30→21:21)
[2017-03-02] MEDS: Pantoprazole 40 mg EC Tab PO SCH (21:05)
[2017-03-02] MEDS ORDERED: Insulin Detemir 100 units/ml Vial (Levemir) SC SCH (22:00)
--- NOTE | 2017-03-02 23:22 | CP.PCM.PN ---
Subjective - Date & Time of Evaluation Date of Evaluation: 03/02/17 Time of Evaluation: 11:00 - Subjective Subjective: lying in bed, notes she feels better. BS fluctuating 40-400 ,only on one med at home.[id number]. able to urinate. PT seen the patient. ct chest negative for PE shoulder- arthritis,no acute fracture Objective - Vital Signs/Intake and Output Vital Signs (last 24 hours): Temp Pulse Resp BP Pulse Ox 98.2 F 68 20 100/52 L 97 03/02/17 16:00 03/02/17 16:00 03/02/17 16:00 03/02/17 16:00 03/02/17 16:00 Intake and Output: 03/02/17 03/03/17 18:59 06:59 Intake Total 720 380 Output Total 1 Balance 720 379 - Medications Medications: Current Medications Donepezil HCl (Aricept) 5 mg PO HS [facility] Last Admin: 03/02/17 21:04 Dose: 5 mg Enoxaparin Sodium (Lovenox) 40 mg SC DAILY [facility] PRN Reason: Protocol Last Admin: 03/02/17 10:49 Dose: 40 mg Glimepiride (Amaryl) 4 mg PO ACBD [facility] Last Admin: 03/02/17 17:50 Dose: Not Given Home Med (Home Med) 1 unit PO DAILY [facility] Last Admin: 03/02/17 10:45 Dose: Not Given Home Med (Home Med) 1 unit PO DAILY [facility] Last Admin: 03/02/17 10:45 Dose: Not Given Insulin Detemir (Levemir) 12 unit SC HS [facility] Last Admin: 03/02/17 21:05 Dose: 12 unit Insulin Human Regular (Humulin R Low) 0 units SC ACHS [facility] PRN Reason: Protocol Last Admin: 03/02/17 21:21 Dose: 3 units Levothyroxine Sodium (Synthroid) 88 mcg PO ACB [facility] Last Admin: 03/02/17 08:45 Dose: 88 mcg Pantoprazole Sodium (Protonix Ec Tab) 40 mg PO HS [facility] Last Admin: 03/02/17 21:05 Dose: 40 mg Sitagliptin Phosphate (Januvia) 50 mg PO DAILY [facility] Tramadol HCl (Ultram) 50 mg PO Q12H [facility] Last Admin: 03/02/17 20:57 Dose: 50 mg - Labs Labs: 03/02/17 06:15 03/02/17 06:15 PT 10.8 Seconds (9.9-11.8) 02/28/17 21:50 INR 1.00 (0.93-1.08) 02/28/17 21:50 APTT 26.4 Seconds (23.7-30.8) 02/28/17 21:50 - Additional Findings Additional findings: - Constitutional Appears: No Acute Distress - Head Exam Head Exam: NORMAL INSPECTION - Eye Exam Eye Exam: EOMI, Normal appearance, PERRL. absent: Scleral icterus - ENT Exam ENT Exam: Mucous Membranes Dry - Neck Exam Neck exam: Positive for: Normal Inspection. Negative for: Tenderness - Respiratory Exam Respiratory Exam: Clear to Auscultation Bilateral, NORMAL BREATHING PATTERN. absent: Wheezes - Cardiovascular Exam Cardiovascular Exam: REGULAR RHYTHM, +S1, +S2 - GI/Abdominal Exam GI & Abdominal Exam: Normal Bowel Sounds, Soft. absent: Organomegaly, Tenderness - Extremities Exam Extremities exam: Positive for: normal inspection, pedal pulses present. Negative for: pedal edema Additional comments: left shoulder- decreased ROM, Tender - Neurological Exam Neurological exam: Alert, Reflexes Normal Additional comments: oriented to name only - Psychiatric Exam Psychiatric exam: Normal Affect, Normal Mood - Skin Skin Exam: Intact, Warm Assessment and Plan (1) Type 2 diabetes mellitus with hyperglycemia Status: Chronic (2) Syncope Status: Resolved (3) Arthralgia Status: Chronic (4) Debilitated Status: Chronic (5) Dementia Status: Chronic (6) Other specified hypothyroidism Status: Chronic (7) Shoulder tendinitis Status: Chronic - Assessment and Plan (Free Text) Plan: highly fluctuating blood sugars endoconsult RISS continue other meds d\c ivf
[2017-03-03] MEDS: Insulin Reg-LOW-Coverage SC SCH ×4 (07:30→22:17)
--- NOTE | 2017-03-03 08:22 | CON ---
DATE: 03/02/2017 ROOM: ____. This is an 86-year-old female with known history of ____, ____ and ____ also underlying hypothyroidis m, is now being referred for diabetic evaluation because of marked hyperglycemic acceleration as note d thereof. She has ____ and disorientation ____ apparent syncopal event just a few minutes prior to this admission to the Emergency Room. She apparently had a ____ of unresponsiveness as per the famil y and has remained quite confused at this time at the time of evaluation. PAST MEDICAL HISTORY: History of type 2 diabetes, on oral ____ therapy using Tradjenta at ____ mg on ce a day. History of hypothyroidism, ____ on levothyroxine given as ____ once daily. History of hyp ertension and dyslipidemia, also on ____ mg daily and Coreg at ____ mg ____. History of generalized osteoarthritis and underlying osteoporosis, currently on ____. History of ____ depression and also s enile dementia ____. Altered mental status and ____. FAMILY HISTORY: Positive for ____, hypertension. SOCIAL HISTORY: The patient has supportive family. ____. REVIEW OF SYSTEMS: Not possible at this time, but the chart has been reviewed and the family has giv en some information that the patient has increasing bouts of dizziness and lightheadedness with easy fatigability and tiredness and generalized body weakness. No chest pains or palpitations or PNDs. H er oral intake has been variable with nausea, dyspepsia and persistent anorexia with suboptimal meal portions. Also has habitual constipation. No recent ____ of urinary patterns otherwise. PHYSICAL EXAMINATION: GENERAL: This is average built female in no apparent distress. VITAL SIGNS: Blood pressure of 140/80, pulse of 70 beats per minute and regular, temperature 98, res pirations 20. Height is 5 feet, weight is 96 pounds. HEENT: Head normocephalic. Eyes anicteric with pink conjunctivae. Fundoscopy not possible at this time. Ears, nose and throat otherwise normal. NECK: Supple. Thyroid gland is normal size. No carotid bruits or any cervical adenopathy. CARDIOPULMONARY: Has an adynamic precordium. S1, S2 is rapid and regular. LUNGS: Clear to auscultation. ABDOMEN: Flat, soft with positive bowel sounds. EXTREMITIES: No peripheral edema. Pulses are +2 bilaterally. ____. LABORATORY DATA: The chemistry showed BUN of ____, sodium 138, potassium ____, chloride 103, ____, a nd creatinine 0.6. Her glucose levels have ranged from 240-369 and ____ mg/dL. ____ ____ and is now being ____ for diabetic ____. She also ____. ____ changes and ____ otherwise. PLAN OF MANAGEMENT: ____ oral ____ combination with ____ hospital formulary. We will add Amaryl giv en as 4 mg b.i.d. before meals to start today. We will also add basal insulin ____ patient's metabol ic and ____ management ____ a very low dose of 12 units subQ at bedtime daily as ordered. This will be given only for ____ and she will be sent home only on a combination of oral hypoglycemic____ as or dered. We will modify the coverage scale to obviate ____ and ____. We will ____. Valerie Bal MD cc: [id number] TT: 03/02/2017 17:02:55 Confirmation # [id number] Dictation # [id number]
[2017-03-03] MEDS: Enoxaparin 40 mg Syringe SC SCH (10:28)
[2017-03-03] MEDS: TRADJENTA 5 MG PO SCH (10:28)
[2017-03-03] MEDS: FOSAMAX 10 MG PO SCH (10:28)
[2017-03-03] MEDS: Levothyroxine 88 MCG TAB PO SCH (10:29)
--- NOTE | 2017-03-03 16:14 | PN ---
DATE: 03/03/2017 LOCATION: Room 372. This is an 86-year-old female with recent uncontrolled type 2 insulin-requiring diabetes with extreme s of glycemic fluctuations because of the variability of her oral intake as noted. Her glucose levels are fluctuating but improved, and the latest glucose levels have ranged from 77-82 and 330 mg/dL. Her bedtime glucose levels were ranging from 132-399 mg/dL, clearly indicative with extremes of glycemic fluctuations also related to the variability of her oral intake. Her latest rpual vee showed a BUN of 16, sodium 138, potassium 3.7, chloride 103, CO2 28, glucose 200 and creatinin e 0.6. So, at this time, because of the variability of her oral intake and unpredictability of her meal port ions, will prudently and safely keep her on oral hypoglycemic therapy and not on insulin therapy as n oted. Will keep her on the Levemir given as 12 units only in the hospital, but will discontinue for outpatient management. Will also continue the Amaryl given as 4 mg b.i.d. and Januvia given as 50 mg once daily. If she is on Tradjenta at home then she can continue the same thing if available. Will continue also the levothyroxine given as 88 mcg once daily as ordered. Will obtain serial chemistri es and supplement accordingly as needed. Will follow. Valerie Bal MD cc: [id number] TT: 03/03/2017 16:13:43 Confirmation # [id number] Dictation # [id number]
[2017-03-03 18:03] VITALS: TEMP 97.9; O2SAT 98
[2017-03-03] MEDS: Pantoprazole 40 mg EC Tab PO SCH (21:25)
--- NOTE | 2017-03-03 22:37 | CP.PCM.PN ---
Subjective - Date & Time of Evaluation Date of Evaluation: 03/03/17 Time of Evaluation: 11:00 - Subjective Subjective: fluctuating blood sugars.on levemir from last pm. bs-330. patient lying in bed. feeling better.\o left shoulder pain, hx of fall in bathroom few months ago. Objective - Vital Signs/Intake and Output Vital Signs (last 24 hours): Temp Pulse Resp BP Pulse Ox 97.9 F 67 18 98/59 L 98 03/03/17 16:00 03/03/17 16:00 03/03/17 16:00 03/03/17 16:00 03/03/17 16:00 Intake and Output: 03/03/17 03/04/17 18:59 06:59 Intake Total 600 300 Balance 600 300 - Medications Medications: Current Medications Donepezil HCl (Aricept) 5 mg PO HS [facility] Last Admin: 03/03/17 21:25 Dose: 5 mg Enoxaparin Sodium (Lovenox) 40 mg SC DAILY [facility] PRN Reason: Protocol Last Admin: 03/03/17 10:28 Dose: 40 mg Glimepiride (Amaryl) 4 mg PO ACBD [facility] Last Admin: 03/03/17 17:55 Dose: Not Given Home Med (Home Med) 1 unit PO DAILY [facility] Last Admin: 03/03/17 10:28 Dose: Not Given Home Med (Home Med) 1 unit PO DAILY [facility] Last Admin: 03/03/17 10:28 Dose: Not Given Insulin Human Regular (Humulin R Low) 0 units SC ACHS [facility] PRN Reason: Protocol Last Admin: 03/03/17 22:17 Dose: Not Given Levothyroxine Sodium (Synthroid) 88 mcg PO ACB [facility] Last Admin: 03/03/17 10:29 Dose: 88 mcg Pantoprazole Sodium (Protonix Ec Tab) 40 mg PO HS [facility] Last Admin: 03/03/17 21:25 Dose: 40 mg Sitagliptin Phosphate (Januvia) 50 mg PO DAILY [facility] Last Admin: 03/03/17 10:28 Dose: 50 mg Tramadol HCl (Ultram) 50 mg PO Q12H [facility] Last Admin: 03/03/17 10:29 Dose: 50 mg - Labs Labs: 03/02/17 06:15 03/02/17 06:15 PT 10.8 Seconds (9.9-11.8) 02/28/17 21:50 INR 1.00 (0.93-1.08) 02/28/17 21:50 APTT 26.4 Seconds (23.7-30.8) 02/28/17 21:50 - Skin Additional comments: - Constitutional Appears: No Acute Distress - Head Exam Head Exam: NORMAL INSPECTION - Eye Exam Eye Exam: EOMI, Normal appearance, PERRL. absent: Scleral icterus - ENT Exam ENT Exam: Mucous Membranes Dry - Neck Exam Neck exam: Positive for: Normal Inspection. Negative for: Tenderness - Respiratory Exam Respiratory Exam: Clear to Auscultation Bilateral, NORMAL BREATHING PATTERN. absent: Wheezes - Cardiovascular Exam Cardiovascular Exam: REGULAR RHYTHM, +S1, +S2 - GI/Abdominal Exam GI & Abdominal Exam: Normal Bowel Sounds, Soft. absent: Organomegaly, Tenderness - Extremities Exam Extremities exam: Positive for: normal inspection, pedal pulses present. Negative for: pedal edema Additional comments: left shoulder- decreased ROM, Tender - Neurological Exam Neurological exam: Alert, Reflexes Normal Additional comments: oriented to name only - Psychiatric Exam Psychiatric exam: Normal Affect, Normal Mood - Skin Skin Exam: Intact, Warm Assessment and Plan (1) Shoulder tendinitis Status: Chronic (2) Type 2 diabetes mellitus with hyperglycemia Status: Chronic (3) Arthralgia Status: Chronic (4) Syncope Status: Resolved (5) Dementia Status: Chronic (6) Debilitated Status: Chronic (7) Other specified hypothyroidism Status: Chronic - Assessment and Plan (Free Text) Plan: 1. syncope work up negative 2. returned to base line 3. blood sugar-needs to be better controlled-as per endo 4. rehab process in progress
[2017-03-04 07:49] LABS: ADD MANUAL DIFF? NO
[2017-03-04 07:54] LABS: BASO # 0.01 K/mm3 (0.0-2.0); BASO % 0.1 % (0.0-3.0); EOS # 0.2 (0.0-0.7); EOS % 2.6 % (1.5-5.0); GRAN # 4.69 (1.4-6.5); GRAN % 60.5 % (50.0-68.0); HEMATOCRIT 34.5 % (36.0-48.0); LYMPH # 2.1 (1.2-3.4); LYMPH % 27.3 % (22.0-35.0); MEAN CELL VOLUME 88.7 fL (80.0-105.0); MEAN CORPUSCULAR HGB CONC 32.8 g/dl (31.0-37.0); MEAN PLATELET VOLUME 10.8 fl (7.0-11.0); MONO # 0.7 (0.1-0.6); MONO % 9.5 % (1.0-6.0); PLATELET COUNT 266 10^3/uL (120.0-450.0); RED CELL DISTRIBUTION WIDTH 12.6 % (11.5-14.5); WHITE BLOOD COUNT 7.8 10^3/ul (4.5-11.0)
[2017-03-04] MEDS: Insulin Reg-LOW-Coverage SC SCH ×3 (08:12→16:03)
[2017-03-04 08:22] LABS: ALB/GLOB RATIO 0.9 (1.1-1.8); ALKALINE PHOSPHATASE 124 U/L (38-133); ALT/SGPT 74 U/L (7-56); AST/SGOT 58 U/L (15-39); BILIRUBIN,TOTAL 1.4 mg/dL (0.2-1.3); BLOOD UREA NITROGEN 10 mg/dL (7-21); CALCIUM 9.1 mg/dL (8.4-10.5); CARBON DIOXIDE 31 mmol/L (21-33); CHLORIDE 97 mmol/L (98-107); GFR AFRICAN-AMERICAN > 60; GLUCOSE,RANDOM 238 mg/dL (70-110); POTASSIUM 3.9 mmol/L (3.6-5.0); SODIUM 135 mmol/L (132-148); TOTAL PROTEIN 6.5 g/dL (5.8-8.3)
[2017-03-04] MEDS: Levothyroxine 88 MCG TAB PO SCH (08:58)
[2017-03-04] MEDS: Enoxaparin 40 mg Syringe SC SCH (09:01)
[2017-03-04 09:46] VITALS: BP 111/69; PULSE 80; RESP 20
[2017-03-04] MEDS: TRADJENTA 5 MG PO SCH (10:00)
[2017-03-04] MEDS: FOSAMAX 10 MG PO SCH (10:00)
--- NOTE | 2017-03-04 15:32 | PN ---
DATE: 03/04/2017 ROOM: 372 This is an 86-year-old female with recent uncontrolled type 2 insulin-requiring diabetes, now being f ollowed closely for metabolic management. Her oral intake remains quite variable at this time and ac tually needs feeding assistance as noted. Her glycemic fluctuations are persistent with glucose levels ranging from 271-304 mg/dL. Her latest chemistry showed a BUN of 10, sodium 135, potassium 3.9, chloride 97, CO2 of 31, glucose 238 and crea tinine 0.6. Yesterday she had a bout of hypoglycemia after early dinner with a glucose level of 57 m cg/dL with a repeat level of 288 at bedtime. With the variability of her oral intake, would prudently keep her on just dual oral hypoglycemic drug therapy for now and hold off insulin therapy at this time. Will keep her on the Januvia at the high er dose of 100 mg once daily as ordered today. Will also continue the Amaryl given as 4 mg b.i.d. be fore meals as ordered. Will titrate incrementally as indicated to optimize metabolic control. Will follow and advise accordingly. Valerie Bal MD cc: [id number] TT: 03/04/2017 15:31:04 Confirmation # [id number] Dictation # [id number]
[2017-03-04] MEDS ORDERED: Dextrose 50% SYRINGE Inj (50 ml) ONE (15:57)
--- NOTE | 2017-03-14 18:11 | CP.PCM.DIS ---
Provider - Provider Date of Admission: 03/01/17 16:59 Attending physician: Jose Payne MD Time Spent in preparation of Discharge (in minutes): 30 Diagnosis - Discharge Diagnosis (1) Shoulder tendinitis Status: Chronic (2) Type 2 diabetes mellitus with hyperglycemia Status: Chronic (3) Arthralgia Status: Chronic (4) Syncope Status: Resolved (5) Dementia Status: Chronic (6) Debilitated Status: Chronic (7) Other specified hypothyroidism Status: Chronic Hospital Course - Lab Results Lab Results: Most Recent Lab Values WBC 7.8 10^3/ul (4.5-11.0) 03/04/17 07:00 RBC 3.89 10^6/uL (3.5-6.1) 03/04/17 07:00 Hgb 11.3 gm/dL (12.0-16.0) L 03/04/17 07:00 Hct 34.5 % (36.0-48.0) L 03/04/17 07:00 MCV 88.7 fL (80.0-105.0) 03/04/17 07:00 MCH 29.0 pg (25.0-35.0) 03/04/17 07:00 MCHC 32.8 g/dl (31.0-37.0) 03/04/17 07:00 RDW 12.6 % (11.5-14.5) 03/04/17 07:00 Plt Count 266 10^3/uL (120.0-450.0) 03/04/17 07:00 MPV 10.8 fl (7.0-11.0) 03/04/17 07:00 Gran % 60.5 % (50.0-68.0) 03/04/17 07:00 Lymph % (Auto) 27.3 % (22.0-35.0) 03/04/17 07:00 Osborne % (Auto) 9.5 % (1.0-6.0) H 03/04/17 07:00 Eos % (Auto) 2.6 % (1.5-5.0) 03/04/17 07:00 Baso % (Auto) 0.1 % (0.0-3.0) 03/04/17 07:00 Gran # 4.69 (1.4-6.5) 03/04/17 07:00 Lymph # 2.1 (1.2-3.4) 03/04/17 07:00 Osborne # 0.7 (0.1-0.6) H 03/04/17 07:00 Eos # 0.2 (0.0-0.7) 03/04/17 07:00 Baso # 0.01 K/mm3 (0.0-2.0) 03/04/17 07:00 PT 10.8 Seconds (9.9-11.8) 02/28/17 21:50 INR 1.00 (0.93-1.08) 02/28/17 21:50 APTT 26.4 Seconds (23.7-30.8) 02/28/17 21:50 D-Dimer, Quantitative 1.25 mg/L FEU (0-0.50) H 02/28/17 21:50 Sodium 135 mmol/L (132-148) 03/04/17 07:00 Potassium 3.9 mmol/L (3.6-5.0) 03/04/17 07:00 Chloride 97 mmol/L (98-107) L 03/04/17 07:00 Carbon Dioxide 31 mmol/L (21-33) 03/04/17 07:00 Anion Gap 11 (10-20) 03/04/17 07:00 BUN 10 mg/dL (7-21) 03/04/17 07:00 Creatinine 0.6 mg/dL (0.5-1.4) 03/04/17 07:00 Est GFR ( Amer) > 60 03/04/17 07:00 Est GFR (Non-Af Amer) > 60 03/04/17 07:00 POC Glucose (mg/dL) 110 mg/dL (65-110) 03/04/17 16:33 Random Glucose 238 mg/dL (70-110) H 03/04/17 07:00 Hemoglobin A1c 9.3 % (4.2-6.5) H 02/28/17 21:50 Calcium 9.1 mg/dL (8.4-10.5) 03/04/17 07:00 Total Bilirubin 1.4 mg/dL (0.2-1.3) H 03/04/17 07:00 AST 58 U/L (15-39) H 03/04/17 07:00 ALT 74 U/L (7-56) H 03/04/17 07:00 Alkaline Phosphatase 124 U/L (38-133) 03/04/17 07:00 Lactate Dehydrogenase 341 U/L (333-699) 03/01/17 08:20 Total Creatine Kinase 22 U/L (35-230) L 03/01/17 08:20 Troponin I 0.04 ng/mL D 03/01/17 08:20 Total Protein 6.5 g/dL (5.8-8.3) 03/04/17 07:00 Albumin 3.0 g/dL (3.0-4.8) 03/04/17 07:00 Globulin 3.5 gm/dL 03/04/17 07:00 Albumin/Globulin Ratio 0.9 (1.1-1.8) L 03/04/17 07:00 Triglycerides 131 mg/dL (35-160) 02/28/17 21:50 Cholesterol 166 mg/dL (130-200) 02/28/17 21:50 LDL Cholesterol Direct 90 mg/dL (0-129) 02/28/17 21:50 HDL Cholesterol 50 mg/dL (29-60) 02/28/17 21:50 TSH 3rd Generation 3.76 mIU/mL (0.46-4.68) 03/01/17 08:20 Urine Color Yellow (YELLOW) 02/28/17 23:35 Urine Appearance Cloudy (CLEAR) 02/28/17 23:35 Urine pH 6.0 (4.7-8.0) 02/28/17 23:35 Ur Specific Tolley >= 1.030 (1.005-1.035) 02/28/17 23:35 Urine Protein 30 mg/dL (<30 mg/dL) H 02/28/17 23:35 Urine Glucose (UA) >=1000 mg/dL (NEGATIVE) 02/28/17 23:35 Urine Ketones Trace mg/dL (NEGATIVE) H 02/28/17 23:35 Urine Blood Moderate (NEGATIVE) H 02/28/17 23:35 Urine Nitrate Negative (NEGATIVE) 02/28/17 23:35 Urine Bilirubin Negative (NEGATIVE) 02/28/17 23:35 Urine Urobilinogen 1.0 E.U./dL (<1 E.U./dL) H 02/28/17 23:35 Ur Leukocyte Esterase Negative Manjeet/uL (NEGATIVE) 02/28/17 23:35 Urine RBC 2 - 5 /hpf (0-2) 02/28/17 23:35 Urine WBC 5 - 10 /hpf (0-6) 02/28/17 23:35 Ur Epithelial Cells 3 - 4 /hpf (0-5) 02/28/17 23:35 Urine Bacteria Mod (NEG) 02/28/17 23:35 Blood Type A POSITIVE 02/28/17 21:50 Blood Type Confirm A POSITIVE 02/28/17 23:32 Antibody Screen Negative 02/28/17 21:50 BBK History Checked No verified bt 02/28/17 21:50 - Hospital Course Hospital Course: cardiac work up negative.returned to base line. daughter agreed to rehab endo recommend to continue glimiperide with good lee d\kay golden. Discharge Exam - Head Exam Head Exam: NORMAL INSPECTION Additional comments: - Constitutional Appears: No Acute Distress - Head Exam Head Exam: NORMAL INSPECTION - Eye Exam Eye Exam: EOMI, Normal appearance, PERRL. absent: Scleral icterus - ENT Exam ENT Exam: Mucous Membranes Dry - Neck Exam Neck exam: Positive for: Normal Inspection. Negative for: Tenderness - Respiratory Exam Respiratory Exam: Clear to Auscultation Bilateral, NORMAL BREATHING PATTERN. absent: Wheezes - Cardiovascular Exam Cardiovascular Exam: REGULAR RHYTHM, +S1, +S2 - GI/Abdominal Exam GI & Abdominal Exam: Normal Bowel Sounds, Soft. absent: Organomegaly, Tenderness - Extremities Exam Extremities exam: Positive for: normal inspection, pedal pulses present. Negative for: pedal edema Additional comments: left shoulder- decreased ROM, Tender - Neurological Exam Neurological exam: Alert, Reflexes Normal Additional comments: oriented to name only - Psychiatric Exam Psychiatric exam: Normal Affect, Normal Mood - Skin Skin Exam: Intact, Warm Discharge Plan - Follow Up Plan Condition: STABLE Disposition: REHAB FACILITY/REHAB UNIT Instructions: Altered Mental Status (GEN), Diabetic Hyperglycemia (DC), Stroke (DC), Stroke (GEN) Additional Instructions: Discharge patient to [facility], your primary doctor will follow up with you at the facility, continue to take all medications as prescribed. januvia 100 mg daily Glimiperide
== END 2017-03-04 20:30 | DRG 57 ==
LOC: ED 21:06 → ERH 23:28 → 3RSO 03-01 03:19 → OBSVTOIN 03-01 16:59 → MERGE 03-01 16:59
PROVIDERS: ADMIT Internal Medicine; ATTEND Internal Medicine
DX: G30.9 Alzheimer's disease, unspecified (principal); E11.649 Type 2 diabetes mellitus with hypoglycemia without coma; E11.65 Type 2 diabetes mellitus with hyperglycemia; F02.80 Dementia in other diseases classified elsewhere, unspecified severity, without behavioral disturbance, psychotic disturbance, mood disturbance, and anxiety; M81.0 Age-related osteoporosis without current pathological fracture; E03.9 Hypothyroidism, unspecified; E78.5 Hyperlipidemia, unspecified; I10 Essential (primary) hypertension; M15.9 Polyosteoarthritis, unspecified; M77.9 Enthesopathy, unspecified; Z72.820 Sleep deprivation; Z79.4 Long term (current) use of insulin; Z79.899 Other long term (current) drug therapy; Z82.49 Family history of ischemic heart disease and other diseases of the circulatory system; Z90.710 Acquired absence of both cervix and uterus; K59.00 Constipation, unspecified; K64.9 Unspecified hemorrhoids; F41.9 Anxiety disorder, unspecified; F32.89 Other specified depressive episodes; R55 Syncope and collapse; M25.50 Pain in unspecified joint